=== PATIENT | female | born 1950 | race Caucasian/White ===

== ENCOUNTER 2016-12-10 13:01 | Inpatient (IN) | payer MEDICAID ==
[~2016-12-10] VITALS: Ht 160 cm; Wt 72.7 kg
[~2016-12-10 13:01] MED LIST: ATENOLOL
[2016-12-10] MEDS ORDERED: NITROGLYCERIN OINT 1GM/INCH UDPKT TD ONE (13:45)
[2016-12-10] MEDS ORDERED: ASPIRIN 81MG TABLET PO ONE (13:45)
[2016-12-10 14:13] LABS: BASOPHILS % 0.5 % (0.0-2.0); EOSINOPHILS % 1.5 % (0.0-5.0); HEMATOCRIT. 38.6 % (36.0-48.0); LYMPHOCYTES % 31.9 % (20.0-50.0); MEAN CORPUSCULAR HEMOGLOBIN 29.1 pg (28.0-32.0); MEAN CORPUSCULAR VOLUME 86.2 fL (81.0-99.0); MEAN PLATELET VOLUME 8.4 fl (7.4-10.4); MONOCYTES % 6.4 % (2.0-8.0); NEUTROPHILS % 59.7 % (40.0-76.0); PLATELET 255 x1000/uL (130-400); RED BLOOD CELL COUNT 4.48 mill/uL (4.2-5.4); RED CELL DISTRIBUTION WIDTH 13.1 % (11.6-14.6)
[2016-12-10 14:20] LABS: CARBON DIOXIDE 24 mEq/L (21-32); CHLORIDE 107 mEq/L (98-107)
[2016-12-10 14:21] LABS: D-DIMER 0.19 mg/L FEU (<0.50); PARTIAL THROMBOPLASTIN TIME 27.6 sec (23.4-31.0)
[2016-12-10 14:26] LABS: TROPONIN I < 0.02 ng/mL (0.00-0.04)
[2016-12-10 14:35] LABS: CLARITY URINE CLEAR (CLEAR); COLOR URINE YELLOW (YELLOW); GLUCOSE URINE NEGATIVE (NEGATIVE); KETONES URINE NEGATIVE (NEGATIVE); LEUKOCYTE ESTERASE URINE 3+ (NEGATIVE); NITRITE URINE NEGATIVE (NEGATIVE); OCCULT BLOOD URINE NEGATIVE (NEGATIVE); PROTEIN URINE NEGATIVE (NEGATIVE); SPECIFIC GRAVITY URINE 1.012 (1.005-1.030); UROBILINOGEN URINE 0.2 E.U./dL (0.2-1.0)
[2016-12-10] MEDS ORDERED: CLONIDINE 0.1MG TABLET PO PRN (16:45)
[2016-12-10 17:00] VITALS: BP 140/68
[2016-12-10 17:11] VITALS: BP 140/68
[2016-12-10] MEDS ORDERED: METO25TA6 PO (17:41)
[2016-12-10] MEDS ORDERED: ASPI-1159 PO (17:41)
[2016-12-10] MEDS ORDERED: AMLO10TA80 PO (17:41)
[2016-12-10] MEDS: AMLODIPINE 5MG TABLET PO SCH (17:55)
[2016-12-10] MEDS: ENOXAPARIN 40MG/0.4ML SYR SUBCUT SCH (18:46)
[2016-12-10 20:00] VITALS: BP 118/61
[2016-12-10] MEDS: METOPROLOL TARTRATE 25MG TABLET PO SCH (21:35)
[2016-12-10] MEDS ORDERED: HYDROCODONE/ACETAMINOPHEN 5/325MG TABLET PO PRN (22:00)
[2016-12-10] MEDS ORDERED: LEVOFLOXACIN 750MG PREMIX 150 ML IV NR (23:30)
[2016-12-10 23:36] LABS: CREATINE KINASE 39 IU/L (26-192); CREATINE KINASE MB FRACTION < 0.5 ng/mL (0.5-3.6); TROPONIN I < 0.02 ng/mL (0.00-0.04)
[2016-12-11] VITALS: BP 106/62
[2016-12-11 04:14] VITALS: BP 114/60
[2016-12-11 05:23] LABS: BASOPHILS % 0.2 % (0.0-2.0); EOSINOPHILS % 1.5 % (0.0-5.0); HEMATOCRIT. 36.3 % (36.0-48.0); HEMOGLOBIN. 12.2 g/dL (12.0-16.0); LYMPHOCYTES % 25.5 % (20.0-50.0); MEAN CORPUSCULAR VOLUME 86.2 fL (81.0-99.0); MEAN PLATELET VOLUME 8.9 fl (7.4-10.4); MONOCYTES % 7.2 % (2.0-8.0); NEUTROPHILS % 65.6 % (40.0-76.0); PLATELET 230 x1000/uL (130-400); RED BLOOD CELL COUNT 4.21 mill/uL (4.2-5.4); RED CELL DISTRIBUTION WIDTH 13.2 % (11.6-14.6)
[2016-12-11 06:38] LABS: CARBON DIOXIDE 26 mEq/L (21-32); CHLORIDE 107 mEq/L (98-107); CREATINE KINASE 36 IU/L (26-192); CREATINE KINASE MB FRACTION < 0.5 ng/mL (0.5-3.6); HDL CHOLESTEROL 49 mg/dL (40-59); LDL CHOLESTEROL 167 mg/dL (5-100); TROPONIN I < 0.02 ng/mL (0.00-0.04)
[2016-12-11 06:57] LABS: *AMPHETAMINES SCREEN URINE NEGATIVE (NEGATIVE); *BARBITURATES SCREEN URINE NEGATIVE (NEGATIVE); *BENZODIAZEPINES SCREEN URINE NEGATIVE (NEGATIVE); *COCAINE SCREEN URINE NEGATIVE (NEGATIVE); CANNABINOID URINE SCREEN NEGATIVE (NEGATIVE); METHADONE URINE SCREEN NEGATIVE (NEGATIVE); OPIATES URINE SCREEN NEGATIVE (NEGATIVE); PHENCYCLIDINE URINE SCREEN NEGATIVE (NEGATIVE)
[2016-12-11 08:00] VITALS: BP 118/64
[2016-12-11] MEDS ORDERED: INFLUENZA VIRUS VACCINE 0.5ML SYR IM ONE (08:00)
[2016-12-11] MEDS: AMLODIPINE 5MG TABLET PO SCH ×2 (09:00→16:26)
[2016-12-11] MEDS ORDERED: ASPIRIN 325MG EC TABLET PO SCH (09:00)
[2016-12-11] MEDS: METOPROLOL TARTRATE 25MG TABLET PO SCH ×2 (09:20→17:00)
[2016-12-11 12:00] VITALS: BP 108/69
[2016-12-11 16:00] VITALS: BP 120/61
[2016-12-11] MEDS ORDERED: ATOR20TA PO (16:46)
[2016-12-11] MEDS: ENOXAPARIN 40MG/0.4ML SYR SUBCUT SCH (17:00)
[2016-12-11 18:05] VITALS: BP 120/60
[2016-12-11] MEDS ORDERED: LEVOFLOXACIN 500MG PREMIX 100 ML IV SCH (21:00)
[2016-12-11] MEDS ORDERED: ATORVASTATIN CALCIUM 10MG TABLET PO SCH (21:00)
== END 2016-12-11 18:40 | disposition home or self-care (01) | DRG 463 ==
LOC: ER 13:01 → 5WST 15:53 → EDBEDREQ 15:56 → ENRESERV 16:03
PROVIDERS: ADMIT Internal Medicine; ATTEND Internal Medicine
DX: N39.0 Urinary tract infection, site not specified (principal); I47.1 Supraventricular tachycardia; I11.9 Hypertensive heart disease without heart failure; Z79.82 Long term (current) use of aspirin; E78.5 Hyperlipidemia, unspecified
CPT/HCPCS: 36415; 71010; 80053; 80061; 80305; 81001; 82550; 82553; 83735; 83880; 84443; 84484; 85025; 85379; 85610; 85730; 90686; 93005; 93306; 93970; 99285; J1650; J1956; J7050